=== PATIENT | female | born 1975 | race Caucasian/White ===

== ENCOUNTER 2018-05-08 17:45 | Inpatient (IN) | payer MEDICAID ==
[~2018-05-08] VITALS: Ht 158.8 cm; Wt 74.5 kg
[~2018-05-08 17:45] MED LIST: ALBU18HF2 INH; LEVO175T7 PO; METO50TA17 PO; PANT40TA4 PO; SIMV20TA5 PO
[2018-05-08] MEDS ORDERED: normal saline 1000ML IV soln IVB ONE (18:50)
[2018-05-08 19:11] LABS: HEMATOCRIT 25.4 % (35.0-45.0); MEAN CORPUSCULAR HEMOGLOBIN 27.3 PG (27.0-31.0); MEAN CORPUSCULAR HGB CONC 31.4 % (33.0-36.5); MEAN PLATELET VOLUME 10.4 FL (7.4-10.4); PLATELET COUNT 60 X10'3 (140-440); RED BLOOD COUNT 2.92 X10'6 (4.20-5.60); RED CELL DISTRIBUTION WIDTH 18.6 % (11.5-14.5); WHITE BLOOD COUNT 3.9 X10'3 (4.5-11.0)
[2018-05-08 19:22] LABS: ALANINE AMINOTRANSFERASE 33 U/L (12-78); ALBUMIN 3.9 G/DL (3.4-5.0); ALKALINE PHOSPHATASE 92 IU/L (46-116); ANION GAP 12 (8-16); ASPARTATE AMINO TRANSFERASE 71 U/L (10-37); BILIRUBIN,TOTAL 0.4 MG/DL (0.1-1.0); BLOOD UREA NITROGEN 3 MG/DL (7-18); BUN/CREATININE RATIO 3.9 (6.6-38.0); CALCIUM 8.6 MG/DL (8.5-10.1); CHLORIDE 102 MMOL/L (99-107); CREATININE 0.77 MG/DL (0.40-0.90); GLUCOSE 85 MG/DL (70-104); POTASSIUM 3.4 MMOL/L (3.5-5.1); SODIUM 138 MMOL/L (135-145); TOTAL CARBON DIOXIDE 24.1 MMOL/L (24-32); TOTAL PROTEIN 7.8 G/DL (6.4-8.2); eGFR 81 ML/MIN
[2018-05-08 19:43] LABS: CLARITY,URINE CLEAR (Clear); COLOR,URINE STRAW (Yellow); GLUCOSE, URINE NEGATIVE (Neg); KETONES,URINE NEGATIVE (Neg); LEUKOCYTE ESTERASE ,URINE NEGATIVE (Neg); NITRITES, URINE NEGATIVE (Neg); OCCULT BLOOD,URINE SMALL (Neg); PROTEIN,URINE NEGATIVE (Neg); UROBILINOGEN,URINE 0.2 E.U/dL (0.2-1.0)
[2018-05-08 19:48] LABS: TOTAL CELLS COUNTED 100
[2018-05-08 19:49] LABS: UA COLLECTION TYPE STRAIGHT CATH
[2018-05-08 19:55] LABS: PARTIAL THROMBOPLASTIN TIME 28 SECONDS (22-32)
[2018-05-08 19:57] LABS: PLATELET ESTIMATE DECREASED
[2018-05-08 19:58] LABS: LARGE PLATELETS FEW; SCHISTOCYTES FEW; TARGET CELLS 3+
[2018-05-08 20:04] LABS: BACTERIA,URINE FEW /HPF (Neg); MUCUS STRANDS FEW /LPF (Neg); RBC,URINE NONE SEEN /HPF (0-2); SQUAMOUS EPITHELIAL CELL,UR MODERATE /LPF (FEW); WBC,URINE NONE SEEN /HPF (0-4)
[2018-05-08 20:31] LABS: OCCULT BLOOD STOOL POSITIVE (Neg)
[2018-05-08] MEDS ORDERED: haloperidol 5mg tablet PO PRN (20:50)
[2018-05-08] MEDS ORDERED: haloperidol lactate 5mg/ml inj IM PRN (20:50)
[2018-05-08] MEDS ORDERED: ondansetron/PF 4mg/2ml inj IV PRN (20:50)
[2018-05-08] MEDS ORDERED: magnesium 1gm/100ml D5W IVPB 100 ML IV PRN (20:50)
[2018-05-08] MEDS ORDERED: potassium Cl 40MEQ/NS 500ml 500 ML IV PRN ×2 (20:50)
[2018-05-08] MEDS ORDERED: mag hydrox/Alum hydrox/simeth 30ml oral suspension PO PRN (20:50)
[2018-05-08] MEDS ORDERED: potassium Cl 20 mEq SR tablet PO PRN ×2 (20:50)
[2018-05-08] MEDS ORDERED: magnesium hydroxide 30ml (MOM) UD suspension PO PRN (20:50)
[2018-05-08] MEDS ORDERED: magnesium 4gm in 100ml NS 100 ML IV PRN (20:50)
[2018-05-08] MEDS ORDERED: acetaminophen 325mg tablet PO PRN (20:50)
[2018-05-08] MEDS ORDERED: thiamine inj. 100 MG in normal saline 100ml IV soln 100 ML IV ONE (20:50)
[2018-05-08 21:11] LABS: URINE AMPHETAMINE SCREEN NEGATIVE (Neg); URINE BARBITUATE SCREEN NEGATIVE (Neg); URINE BENZODIAZEPINES SCREEN NEGATIVE (Neg); URINE CANNABINOID SCREEN NEGATIVE (Neg); URINE COCAINE SCREEN NEGATIVE (Neg); URINE METHADONE SCREEN NEGATIVE (Neg); URINE OPIATE SCREEN NEGATIVE (Neg); URINE PHENCYCLIDINE SCREEN NEGATIVE (Neg)
[2018-05-08 21:18] LABS: ETHANOL 0.355 GM/DL (0.0-0.010)
[2018-05-08] MEDS: ipratropium/albuterol 3ml nebule NEB PRN (22:30)
[2018-05-08] MEDS: LORazepam 2 mg/ml vial IV PRN (23:12)
[2018-05-08] MEDS: normal saline 1000ml 1,000 ML IV SCH (23:23)
[2018-05-09] VITALS (13 sets, daily range): BP systolic 123–183; BP diastolic 54–101
[2018-05-09] MEDS: pantoprazole 40MG/NS 100ML BAG 100 ML IV SCH ×6 (00:49→22:42)
[2018-05-09] MEDS: LORazepam 2 mg/ml vial IV PRN ×6 (03:45→22:16)
[2018-05-09 05:17] LABS: HEMATOCRIT 26.4 % (35.0-45.0); HEMOGLOBIN 8.4 g/dl (12.0-16.0); MEAN CORPUSCULAR HEMOGLOBIN 28.4 PG (27.0-31.0); MEAN CORPUSCULAR HGB CONC 31.7 % (33.0-36.5); MEAN CORPUSCULAR VOLUME 89.4 FL (78-98); MEAN PLATELET VOLUME 10.7 FL (7.4-10.4); RED BLOOD COUNT 2.96 X10'6 (4.20-5.60); RED CELL DISTRIBUTION WIDTH 17.2 % (11.5-14.5); WHITE BLOOD COUNT 2.6 X10'3 (4.5-11.0)
[2018-05-09 05:33] LABS: INR 1.1 INR; PROTHROMBIN TIME 11.4 SECONDS (9.0-12.0)
[2018-05-09 05:39] LABS: ALANINE AMINOTRANSFERASE 26 U/L (12-78); ALBUMIN 3.4 G/DL (3.4-5.0); ALBUMIN/GLOBULIN RATIO 0.9 (1.1-1.5); ALKALINE PHOSPHATASE 83 IU/L (46-116); AMYLASE 55 U/L (25-115); ANION GAP 11 (8-16); ASPARTATE AMINO TRANSFERASE 63 U/L (10-37); BILIRUBIN,TOTAL 0.5 MG/DL (0.1-1.0); BLOOD UREA NITROGEN 2 MG/DL (7-18); BUN/CREATININE RATIO 2.9 (6.6-38.0); CALCIUM 7.9 MG/DL (8.5-10.1); CHLORIDE 107 MMOL/L (99-107); CREATININE 0.69 MG/DL (0.40-0.90); GLUCOSE 83 MG/DL (70-104); LIPASE 279 U/L (73-393); MAGNESIUM 1.5 MG/DL (1.5-2.4); PHOSPHORUS 4.2 MG/DL (2.3-4.5); POTASSIUM 3.5 MMOL/L (3.5-5.1); SODIUM 141 MMOL/L (135-145); TOTAL CARBON DIOXIDE 23.4 MMOL/L (24-32); eGFR > 90 ML/MIN
[2018-05-09] MEDS: normal saline 1000ml 1,000 ML IV SCH ×2 (06:48→11:32)
[2018-05-09 06:54] LABS: PLATELET COUNT 45 X10'3 (140-440)
[2018-05-09] MEDS: folic acid inj. 2 MG, thiamine inj. 100 MG, MVI, adult No.4 with vit. K 10 ML in dextro... IV SCH ×4 (07:53)
[2018-05-09] MEDS: nicotine 14mg patch - 24hr TD SCH (07:54)
[2018-05-09] MEDS: K and/or MAG REPLACEMENT MC SCH (08:00)
[2018-05-09] MEDS ORDERED: octreotide 100mcg/1 ml ampule IV ONE (09:35)
[2018-05-09] MEDS ORDERED: octreotide inj. 1,250 MCG in normal saline 250ml IV soln 243.75 ML IV SCH (09:35)
[2018-05-09] MEDS ORDERED: non-formulary drug (Albuterol Sulfate (Ventolin Hfa) 2 PUFFS) INH SCH (09:35)
[2018-05-09 10:09] LABS: TOTAL CELLS COUNTED 100
[2018-05-09 10:10] LABS: PLATELET ESTIMATE DECREASED; SMUDGE CELLS 2+
[2018-05-09 10:13] LABS: ANISOCYTOSIS 1+; LARGE PLATELETS FEW
[2018-05-09 10:14] LABS: HYPOCHROMASIA 2+; TARGET CELLS 1+
[2018-05-09] MEDS ORDERED: MIDAZolam 5mg/5ml vial ONE (13:45)
[2018-05-09] MEDS ORDERED: fentaNYL/PF 50MCG/1 ML 2ML syringe ONE ×2 (13:45→16:56)
[2018-05-09] MEDS ORDERED: LIDOcaine Viscous 15ml cup ONE (13:45)
[2018-05-09] MEDS: metoprolol tartrate 50mg tablet PO SCH (19:35)
[2018-05-09] MEDS ORDERED: atorvastatin 10mg tablet PO SCH (21:00)
[2018-05-10] VITALS (7 sets, daily range): BP systolic 141–166; BP diastolic 67–87
[2018-05-10] MEDS: ipratropium/albuterol 3ml nebule NEB PRN (01:03)
[2018-05-10] MEDS: LORazepam 2 mg/ml vial IV PRN ×4 (01:09→13:27)
[2018-05-10] MEDS: pantoprazole 40MG/NS 100ML BAG 100 ML IV SCH ×2 (04:26→10:42)
[2018-05-10 05:57] LABS: HEMATOCRIT 28.8 % (35.0-45.0); HEMOGLOBIN 9.1 g/dl (12.0-16.0); MEAN CORPUSCULAR HEMOGLOBIN 27.8 PG (27.0-31.0); MEAN CORPUSCULAR HGB CONC 31.5 % (33.0-36.5); MEAN CORPUSCULAR VOLUME 88.2 FL (78-98); MEAN PLATELET VOLUME 11.2 FL (7.4-10.4); RED BLOOD COUNT 3.26 X10'6 (4.20-5.60); RED CELL DISTRIBUTION WIDTH 17.6 % (11.5-14.5); WHITE BLOOD COUNT 3.5 X10'3 (4.5-11.0)
[2018-05-10 06:09] LABS: INR 1.1 INR; PROTHROMBIN TIME 11.7 SECONDS (9.0-12.0)
[2018-05-10 06:42] LABS: ALANINE AMINOTRANSFERASE 26 U/L (12-78); ALBUMIN 3.3 G/DL (3.4-5.0); ALBUMIN/GLOBULIN RATIO 0.9 (1.1-1.5); ALKALINE PHOSPHATASE 74 IU/L (46-116); AMYLASE 29 U/L (25-115); ANION GAP 11 (8-16); ASPARTATE AMINO TRANSFERASE 42 U/L (10-37); BILIRUBIN,TOTAL 0.9 MG/DL (0.1-1.0); BLOOD UREA NITROGEN 2 MG/DL (7-18); BUN/CREATININE RATIO 2.4 (6.6-38.0); CALCIUM 8.4 MG/DL (8.5-10.1); CHLORIDE 102 MMOL/L (99-107); CHOL/HDL RATIO 1.9 (0.00-4.99); CHOLESTEROL 98 MG/DL (0-200); CREATININE 0.83 MG/DL (0.40-0.90); GLUCOSE 150 MG/DL (70-104); HDL CHOLESTEROL 52 MG/DL (35-60); LDL CHOLESTEROL 43 MG/DL (50-100); LIPASE 108 U/L (73-393); MAGNESIUM 1.3 MG/DL (1.5-2.4); PHOSPHORUS 2.6 MG/DL (2.3-4.5); POTASSIUM 3.5 MMOL/L (3.5-5.1); SODIUM 138 MMOL/L (135-145); TOTAL CARBON DIOXIDE 24.8 MMOL/L (24-32); TOTAL PROTEIN 7.1 G/DL (6.4-8.2); TRIGLYCERIDES 39 MG/DL (20-135); eGFR 75 ML/MIN
[2018-05-10 07:27] LABS: PLATELET COUNT 42 X10'3 (140-440)
[2018-05-10 07:30] LABS: ANISOCYTOSIS 2+; HYPOCHROMASIA 1+; LARGE PLATELETS FEW; PLATELET ESTIMATE DECREASED; TOTAL CELLS COUNTED 100
[2018-05-10] MEDS: K and/or MAG REPLACEMENT MC SCH (07:37)
[2018-05-10] MEDS: metoprolol tartrate 50mg tablet PO SCH ×2 (07:44→21:02)
[2018-05-10] MEDS: levoTHYROXINE 175mcg tablet PO SCH (07:44)
[2018-05-10] MEDS: folic acid inj. 2 MG, thiamine inj. 100 MG, MVI, adult No.4 with vit. K 10 ML in dextro... IV SCH ×4 (07:46)
[2018-05-10] MEDS: nicotine 14mg patch - 24hr TD SCH (07:46)
[2018-05-10] MEDS: magnesium Cl slow-release 64mg tablet PO PRN ×2 (10:36→23:25)
[2018-05-10] MEDS ORDERED: LORazepam 2 mg/ml vial IV PRN (20:50)
[2018-05-10] MEDS ORDERED: polyethylene glycol 3350 17gm powd pack PO SCH (21:00)
[2018-05-10] MEDS ORDERED: atorvastatin 10mg tablet PO SCH (21:00)
[2018-05-10] MEDS: pantoprazole 40mg Tablet.DR PO SCH (21:03)
[2018-05-10] MEDS: lactulose 20gm/30ml cup PO SCH (23:25)
[2018-05-11] VITALS: BP 146/65
[2018-05-11 02:29] LABS: HEMATOCRIT 26.8 % (35.0-45.0); HEMOGLOBIN 8.4 g/dl (12.0-16.0); MEAN CORPUSCULAR HGB CONC 31.4 % (33.0-36.5); MEAN CORPUSCULAR VOLUME 89.1 FL (78-98); MEAN PLATELET VOLUME 10.4 FL (7.4-10.4); PLATELET COUNT 75 X10'3 (140-440); RED CELL DISTRIBUTION WIDTH 18.4 % (11.5-14.5); WHITE BLOOD COUNT 3.8 X10'3 (4.5-11.0)
[2018-05-11 02:37] LABS: CLARITY,URINE CLEAR (Clear); COLOR,URINE YELLOW (Yellow); GLUCOSE, URINE NEGATIVE (Neg); KETONES,URINE NEGATIVE (Neg); LEUKOCYTE ESTERASE ,URINE NEGATIVE (Neg); NITRITES, URINE NEGATIVE (Neg); OCCULT BLOOD,URINE TRACE-INTACT (Neg); PH,URINE 7.5 (4.8-8.0); PROTEIN,URINE NEGATIVE (Neg); UA COLLECTION TYPE NON-SPECIFIED; UROBILINOGEN,URINE 0.2 E.U/dL (0.2-1.0)
[2018-05-11 02:39] LABS: INR 1.2 INR
[2018-05-11 02:46] LABS: ALANINE AMINOTRANSFERASE 27 U/L (12-78); ALBUMIN 3.3 G/DL (3.4-5.0); ALBUMIN/GLOBULIN RATIO 0.9 (1.1-1.5); ALKALINE PHOSPHATASE 74 IU/L (46-116); AMYLASE 26 U/L (25-115); ANION GAP 10 (8-16); ASPARTATE AMINO TRANSFERASE 39 U/L (10-37); BILIRUBIN,TOTAL 0.7 MG/DL (0.1-1.0); BLOOD UREA NITROGEN 2 MG/DL (7-18); BUN/CREATININE RATIO 2.5 (6.6-38.0); CALCIUM 8.4 MG/DL (8.5-10.1); CHLORIDE 102 MMOL/L (99-107); GLUCOSE 108 MG/DL (70-104); LIPASE 100 U/L (73-393); MAGNESIUM 1.3 MG/DL (1.5-2.4); PHOSPHORUS 3.1 MG/DL (2.3-4.5); POTASSIUM 3.5 MMOL/L (3.5-5.1); SODIUM 137 MMOL/L (135-145); TOTAL CARBON DIOXIDE 25.2 MMOL/L (24-32); eGFR 78 ML/MIN
[2018-05-11 02:55] LABS: BACTERIA,URINE NONE SEEN /HPF (Neg); RBC,URINE 0-2 /HPF (0-2); SQUAMOUS EPITHELIAL CELL,UR FEW /LPF (FEW); WBC,URINE NONE SEEN /HPF (0-4)
[2018-05-11 03:52] LABS: ANISOCYTOSIS 2+; PLATELET ESTIMATE DECREASED; TOTAL CELLS COUNTED 100
[2018-05-11 03:53] LABS: HYPOCHROMASIA 1+; POLYCHROMASIA 1+; STOMATOCYTES FEW; TARGET CELLS FEW
[2018-05-11] MEDS: K and/or MAG REPLACEMENT MC SCH (07:08)
[2018-05-11 07:23] VITALS: BP 147/77
[2018-05-11] MEDS: pantoprazole 40mg Tablet.DR PO SCH (07:33)
[2018-05-11] MEDS: metoprolol tartrate 50mg tablet PO SCH (07:33)
[2018-05-11] MEDS: lactulose 20gm/30ml cup PO SCH (07:33)
[2018-05-11] MEDS: levoTHYROXINE 175mcg tablet PO SCH (07:33)
[2018-05-11] MEDS: nicotine 14mg patch - 24hr TD SCH (07:33)
[2018-05-11] MEDS: LORazepam 1 MG tablet PO PRN ×2 (07:35→09:48)
[2018-05-11] MEDS ORDERED: folic acid 1mg tablet PO SCH (08:00)
[2018-05-11] MEDS ORDERED: thiamine 100mg tablet PO SCH (08:00)
[2018-05-11] MEDS ORDERED: multivitamins, therapeutics tablet PO SCH (08:00)
[2018-05-11 11:49] VITALS: BP 147/65
[2018-05-11] MEDS ORDERED: PANT-47 PO (18:56)
[2018-05-11] MEDS ORDERED: POLY17PO10 PO (18:56)
[2018-05-12] MEDS ORDERED: LORazepam 2 mg/ml vial IV PRN (20:50)
[2018-05-12] MEDS ORDERED: LORazepam 1 MG tablet PO PRN (20:50)
== END 2018-05-11 12:32 | disposition left against medical advice (07) | DRG 226 ==
LOC: ER 17:45 → ED HOLD 20:48 → SUR 3N 22:00
PROVIDERS: ADMIT Family Medicine; ATTEND Family Medicine
PROC: 30233N1 Transfusion of Nonautologous Red Blood Cells into Peripheral Vein, Percutaneous Approach (ICD-10-PCS; principal; 2018-05-09)
PROC: 06LY4CC Occlusion of Hemorrhoidal Plexus with Extraluminal Device, Percutaneous Endoscopic Approach (ICD-10-PCS; 2018-05-09)
PROC: 0DJ08ZZ Inspection of Upper Intestinal Tract, Via Natural or Artificial Opening Endoscopic (ICD-10-PCS; 2018-05-09)
PROC: 30233R1 Transfusion of Nonautologous Platelets into Peripheral Vein, Percutaneous Approach (ICD-10-PCS; 2018-05-10)
DX: K64.8 Other hemorrhoids (principal); I85.01 Esophageal varices with bleeding; D61.818 Other pancytopenia; K76.6 Portal hypertension; K92.1 Melena; D50.9 Iron deficiency anemia, unspecified; E03.9 Hypothyroidism, unspecified; F10.229 Alcohol dependence with intoxication, unspecified; K70.30 Alcoholic cirrhosis of liver without ascites; F32.9 Major depressive disorder, single episode, unspecified; F41.9 Anxiety disorder, unspecified; G89.29 Other chronic pain; E78.5 Hyperlipidemia, unspecified; Z53.21 Procedure and treatment not carried out due to patient leaving prior to being seen by health care provider; F17.210 Nicotine dependence, cigarettes, uncomplicated; I10 Essential (primary) hypertension; Y90.1 Blood alcohol level of 20-39 mg/100 ml; K31.9 Disease of stomach and duodenum, unspecified; Z80.1 Family history of malignant neoplasm of trachea, bronchus and lung; Z82.0 Family history of epilepsy and other diseases of the nervous system; I25.2 Old myocardial infarction; Z83.3 Family history of diabetes mellitus; Z88.8 Allergy status to other drugs, medicaments and biological substances; Z91.041 Radiographic dye allergy status; Z88.5 Allergy status to narcotic agent; Z91.013 Allergy to seafood; Z79.899 Other long term (current) drug therapy; Z71.6 Tobacco abuse counseling; Z71.41 Alcohol abuse counseling and surveillance of alcoholic
CPT/HCPCS: 36415; 45350; 71045; 76700; 80053; 80061; 80305; 80320; 81001; 82140; 82150; 82272; 83605; 83690; 83735; 84100; 84443; 85025; 85610; 85730; 86885; 86900; 86901; 86920; 87040; 87070; 94640; 94667; 94760; A4620; A6258; C9113; G0500; J2060; J2250; J2354; J2405; J3010; J3411; J3475; J3490; J7030; J7060; P9016; P9035

== ENCOUNTER 2018-05-11 16:19 | Emergency (ER) | payer MEDICAID ==
[~2018-05-11] VITALS: Ht 160 cm; Wt 75.9 kg
[2018-05-11 17:10] VITALS: BP 158/90
[2018-05-11] MEDS ORDERED: POLY17PO10 PO (18:56)
[2018-05-11] MEDS ORDERED: PANT-47 PO (18:56)
== END 2018-05-11 19:11 | disposition home or self-care (01) ==
LOC: ER 16:20
DX: R50.9 Fever, unspecified (principal); I10 Essential (primary) hypertension; I25.2 Old myocardial infarction; G89.29 Other chronic pain; F17.210 Nicotine dependence, cigarettes, uncomplicated; Z88.5 Allergy status to narcotic agent; Z88.8 Allergy status to other drugs, medicaments and biological substances; Z79.899 Other long term (current) drug therapy
CPT/HCPCS: 99283